=== PATIENT | male | born 1975 | race Caucasian/White ===

== ENCOUNTER 2017-09-09 15:22 | Emergency (ER) | payer BC ==
[~2017-09-09] VITALS: Ht 193 cm; Wt 170.2 kg
[2017-09-09] MEDS ORDERED: ONDANSETRON 2MG/ML, 2ML ONE (16:48)
[2017-09-09] MEDS ORDERED: FAMOTIDINE 20 MG/2 ML ONE (16:48)
[2017-09-09] MEDS ORDERED: ONDANSETRON 2MG/ML, 2ML IVPush ONE (17:00)
[2017-09-09] MEDS ORDERED: FAMOTIDINE 20 MG/2 ML IVP ONE (17:00)
[2017-09-09] MEDS ORDERED: SODIUM CHLORIDE FLUSH 10ML SYR IVF ONE (17:00)
[2017-09-09] MEDS ORDERED: SODIUM CHLORIDE 0.9% 1,000ML IVBOLUS ONE (17:00)
[2017-09-09 17:04] LABS: BASOPHILS # (AUTO) 0.02 x10^3/uL (0-0.1); BASOPHILS % (AUTO) 0 % (0-1); EOSINOPHILS # (AUTO) 0.01 x10^3/uL (0-0.4); EOSINOPHILS % (AUTO) 0 % (1-7); LYMPHOCYTES # (AUTO) 1.25 x10^3/uL (1-3.4); LYMPHOCYTES % (AUTO) 8 % (22-44); MD NO; MEAN CORPUSCULAR HEMOGLOBIN 29.7 pg (27.5-34.5); MEAN CORPUSCULAR HGB CONC 33.7 g/dL (33.2-36.2); MEAN CORPUSCULAR VOLUME 88.1 fL (81-97); MEAN PLATELET VOLUME 8.8 fL (7.4-10.4); MONOCYTES # (AUTO) 0.44 x10^3/uL (0.2-0.8); MONOCYTES % (AUTO) 3 % (2-9); NEUTROPHILS # (AUTO) 14.26 x10^3/uL (1.8-6.8); NEUTROPHILS % (AUTO) 89 % (42-75); PLATELET COUNT 283 x10^3/uL (130-400); RED BLOOD COUNT 4.94 x10^6/uL (4.38-5.82); RED CELL DISTRIBUTION WIDTH 13.6 % (9.4-14.8)
[2017-09-09 17:11] LABS: ALANINE AMINOTRANSFERASE 62 U/L (12-78); ALBUMIN 3.7 g/dL (3.4-5.0); ANION GAP 11 mmol/L (5-15); CALCIUM 8.8 mg/dL (8.5-10.1); CHLORIDE 105 mmol/L (98-107); CREATININE 0.75 mg/dL (0.7-1.3)
[2017-09-09 17:13] LABS: ALKALINE PHOSPHATASE 75 U/L (45-117); BILIRUBIN,TOTAL 0.4 mg/dL (0.2-1.0); TOTAL PROTEIN 7.4 g/dL (6.4-8.2)
[2017-09-09 17:15] LABS: INTERNATIONAL NORMALIZED RATIO 0.96 (0.93-1.1)
[2017-09-09 18:30] VITALS: BP 168/92
== END 2017-09-09 18:56 | disposition home or self-care (01) ==
LOC: ED 17:41
DX: K80.42 Calculus of bile duct with acute cholecystitis without obstruction (principal); R11.2 Nausea with vomiting, unspecified
CPT/HCPCS: 36415; 76700; 80053; 83690; 85025; 85610; 96361; 96374; 96375; 99285; J2405; J7030; S0028

== ENCOUNTER 2018-03-15 12:25 | Emergency (ER) | payer BC ==
[~2018-03-15] VITALS: Ht 193 cm; Wt 152.1 kg
--- NOTE | 2018-03-15 12:44 | NUR ---
Called from lobby. No answer.
[2018-03-15 12:50] VITALS: BP 140/91
--- NOTE | 2018-03-15 13:20 | NUR ---
STUDIO ASSISTANT: NO ANSWER FROM LOBBY AT THIS TIME.
--- NOTE | 2018-03-15 13:28 | NUR ---
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
--- NOTE | 2018-03-15 13:45 | NUR ---
PATIENT SAFE IN CHAIR, STATING HIS URINARY/FLANK PAIN HAS DIMINISHED AFTER PROVIDING URINE SAMPLE, HE BELIEVES HE MAY HAVE PASSED A KIDNEY STONE. NO N/V/D NOW.
--- NOTE | 2018-03-15 14:16 | NUR ---
bladder scan 13 mL
[2018-03-15 14:23] LABS: MICROSCOPIC INDICATED
[2018-03-15 14:39] LABS: CULTURE INDICATED? NO
== END 2018-03-15 15:29 | disposition home or self-care (01) ==
LOC: ED 14:04
DX: R10.9 Unspecified abdominal pain (principal)
CPT/HCPCS: 81001; 99283; 99284